=== PATIENT | female | born 1955 | race Caucasian/White ===

== ENCOUNTER 2017-03-21 09:28 | Day surgery (SDC) | payer OTHER, BC ==
[2017-03-18 15:08] VITALS: BMI 41.1
[2017-03-21] MEDS ORDERED: PROPOFOL 20 ML ONE ×2 (10:09)
[2017-03-21 11:45] VITALS: TEMP 97.7
[2017-03-21 11:59] VITALS: BP 139/68; PULSE 63
== END 2017-03-21 11:59 | disposition home or self-care (01) ==
LOC: JASU-ENDO 09:28
PROVIDERS: ATTEND Internal Medicine Gastroenterology
PROC: 0DJD8ZZ Inspection of Lower Intestinal Tract, Via Natural or Artificial Opening Endoscopic (ICD-10-PCS; principal; 2017-03-21 10:30)
DX: Z12.11 Encounter for screening for malignant neoplasm of colon (principal); Z86.010 Personal history of colon polyps; Z80.0 Family history of malignant neoplasm of digestive organs; K57.30 Diverticulosis of large intestine without perforation or abscess without bleeding; K64.8 Other hemorrhoids